=== PATIENT | female | born 1980 | race Caucasian/White ===

== ENCOUNTER 2023-03-26 08:24 | Outpatient (OUT) | payer OTHER, SELFPAY ==
--- NOTE | 2023-03-26 08:39 | XR_ITS ---
[address] [address] Patient Name: HAYLEY TOMPKINS MRN: [id number] date: 1980 Sex: F Assigned Patient Location: US Current Patient Location: US Accession/Order Number: [id number] Exam Date: 03/26/2023 09:05 Report Date: 03/26/2023 09:40 At the request of: NON-STAFF PHYSICIAN Procedure: XR abdomen 1V EXAMINATION: XR abdomen 1V HISTORY: Kidney Stone COMPARISON: No relevant comparison available. FINDINGS: KIDNEY/URETER - RIGHT: No visible renal or ureteral calcifications. KIDNEY/URETER - LEFT: Suspected 5 mm nephrolith PELVIS: No visible ureteral calcifications. Any visible calcifications favor phleboliths. BOWEL: No abnormal dilation or deviation. Moderate stool throughout the colon BONES: No acute abnormality. OTHER: Negative. No abnormal gaseous collections. IMPRESSION: Suspected 5 mm left nephrolith Electronically authenticated by: SELWYN DE LA GARZA Date: 03/26/2023 09:40
--- NOTE | 2023-03-26 08:39 | US_ITS ---
The [address] [address] Patient Name: HAYLEY TOMPKINS MRN: [id number] date: 1980 Sex: F Assigned Patient Location: US Current Patient Location: US Accession/Order Number: [id number] Exam Date: 03/26/2023 08:40 Report Date: 03/26/2023 09:39 At the request of: NON-STAFF PHYSICIAN Procedure: US renal BI EXAMINATION: US renal BI HISTORY: Kidney Stone COMPARISON: No relevant comparison available. TECHNIQUE: Ultrasound examination was performed of the kidneys and urinary bladder. FINDINGS: RIGHT KIDNEY: 3 mm nonobstructing stone within inferior pole. No hydronephrosis, mass, or cortical thinning. Kidney: 12.1 x 5.0 x 5.6 cm LEFT KIDNEY: 4 mm nonobstructing stone within inferior pole. No hydronephrosis, mass, or cortical thinning. Kidney: 10.0 x 4.7 x 5.1 cm BLADDER: No visible wall thickening, mass, or calculi. IMPRESSION: 1. Bilateral nonobstructing nephrolithiasis. Electronically authenticated by: TU ALVES Date: 03/26/2023 09:39
== END 2023-03-26 08:25 ==
PROVIDERS: PCP Family Medicine
DX: N20.0 Calculus of kidney (principal)
CPT/HCPCS: 74018; 76775

== ENCOUNTER 2025-04-21 14:02 | Emergency (ER) | payer OTHER, SELFPAY ==
[2025-04-21 14:08] VITALS: BP 151/85; PULSE 88; TEMP 36.7; O2SAT 98; BMI 34.5
--- NOTE | 2025-04-21 14:14 | CT_ITS ---
[address] [address] Patient Name: HAYLEY TOMPKINS MRN: [id number] date: 1980 Sex: F Assigned Patient Location: ED.MAIN Current Patient Location: ED.MAIN Accession/Order Number: [id number] Exam Date: 04/21/2025 15:29 Report Date: 04/21/2025 15:35 At the request of: HILDA CIFUENTES NP Procedure: CT abdomen pelvis w con CT abdomen pelvis w con 04/21/2025 3:15 PM SIGNS AND SYMPTOMS: ^diarrhea, bloody stool \S.br\ TECHNIQUE: Multidetector ct axial images of the abdomen and pelvis were obtained with IV contrast. Multiplanar reformats were performed and reviewed to further define anatomy and possible pathology. CT was performed with one or more of the following dose reduction techniques: Automated exposure control, adjustment of the mA and/or kV according to patient size, or use of iterative reconstruction technique. COMPARISON: None. FINDINGS: Lower Chest: Within normal limits. ABDOMEN: Liver: Within normal limits. Bile Ducts: Normal caliber. Gallbladder: No calcified gallstones. Normal caliber wall. Pancreas: Within normal limits. Spleen: Within normal limits. Adrenals: Within normal limits. Kidneys: There is a 4 mm nonobstructing stone in the left renal collecting system. A second 2 mm nonobstructing stone is noted in the superior collecting system on the left. Focal areas of renal cortical atrophy are noted on the right suggesting prior pyelonephritis. There is a 2 mm nonobstructing stone in the right renal collecting system. Pelvis: Reproductive Organs: No pelvic masses. Ureters: Within normal limits. Bladder: Within normal limits. Bowel: There is diffuse wall thickening along the colon with mild adjacent fat stranding suggesting colitis which may be infectious or inflammatory. There is a normal appendix in the right lower quadrant. There is no bowel obstruction. Mesenteric Lymph Nodes: No enlarged mesenteric lymph nodes. Peritoneum: No ascites or free air, no fluid collection. Vessels: within normal limits Retroperitoneum: Within normal limits. Abdominal Wall: Within normal limits. Bones: Bilateral L5 pars defects are present with grade 1 spondylolisthesis of L5 upon S1. Degenerative changes are noted in the sacroiliac joints. CT/CT abdomen pelvis w con IMPRESSION: There is diffuse wall thickening along the colon with mild adjacent fat stranding suggesting colitis which may be infectious or inflammatory. No bowel obstruction or obstructive uropathy. Nonobstructing renal stones are present bilaterally as above. Impression dictated by: Donnie Martínez M.D. 04/21/2025 3:35 PM Dictation Location: [place] [address] Electronically authenticated by: [id number] Y Date: 04/21/2025 15:35
[2025-04-21 14:25] VITALS: O2SAT 98
[2025-04-21 14:42] LABS: Hematocrit 37.9 % (36.0-48.0); Hemoglobin 12.6 g/dL (12.0-16.0); Immature Granulocytes Abs Auto 0.01 10^3/uL (0.00-0.03); Immature Granulocytes Pct Auto 0.2 % (0.0-0.5); Lymphocytes Absolute Auto 1.7 10^3/uL (1.2-3.8); Mean Corpuscular HGB Conc 33.2 g/dL (29.9-35.2); Mean Corpuscular Hemoglobin 29.5 pg (26.7-34.0); Mean Corpuscular Volume 88.8 fL (81.0-99.0); Platelet Count 308 10^3/uL (150-450); Red Blood Count 4.27 10^6/uL (4.20-5.40); White Blood Count 6.4 10^3/uL (4.0-11.0)
[2025-04-21 14:43] LABS: Glucose Urine UA NEGATIVE (NEGATIVE)
[2025-04-21 14:53] LABS: Cast Seen? NONE SEEN #/LPF (NONE SEEN); Crystals Seen? None Seen #/HPF (None Seen); Urine Culture Indicated NO
[2025-04-21 14:54] LABS: Alanine Aminotransferase 20 U/L (14-59); Albumin Globulin Ratio 0.8; Albumin Level 3.2 g/dL (3.4-5.0); Alkaline Phosphatase 88 U/L (46-116); Anion Gap 14.4; Aspartate Amino Transferase 17 U/L (15-37); Blood Urea Nitrogen 14.0 mg/dL (7.0-18.0); Calcium 8.8 mg/dL (8.5-10.1); Carbon Dioxide 27.4 mmol/L (21.0-32.0); Chloride 105 mmol/L (98-107); Estimated GFR (African America >60 (>=60 mL/min/1.73m^2); Estimated GFR (Non-African Ame >60 (>=60 mL/min/1.73m^2); Globulin 4.1 g/dL; Glucose 106 mg/dL (74-106); Lipase 22.0 U/L (16.0-77.0); Potassium 3.8 mmol/L (3.5-5.1); Sodium 143 mmol/L (136-145); Total Protein 7.3 g/dL (6.4-8.2)
--- NOTE | 2025-04-21 14:55 | ED_ITS ---
HPI HPI - General Adult General Chief complaint: Nausea/Vomiting/Diarrhea Stated complaint: BLOOD IN STOOL Time Seen by Provider: 04/21/25 14:14 Source: patient Mode of arrival: walk-in History of Present Illness HPI narrative: The patient is a 45-year-old female presents to the emergency department today for evaluation of concerns for diarrhea and bloody stools. She endorses in 04/17 she has had 5 episodes of diarrhea stools daily about. She reports since yesterday she has had some pink-tinged stool present. She does endorse some generalized abdominal discomfort mostly to the periumbilical region . No fevers/chills, nausea/vomiting. No urinary symptoms or back/flank pain. Denies any dizziness or syncope. She mention she does use Aleve 2-3 times a week as needed. Denies any alcohol use. She states she is not on any antiplatelet or anticoagulant medications otherwise. She any significant medical or surgical history. Related Data Allergies Allergy/AdvReac Type Severity Reaction Status Date / Time No Known Drug Allergies Allergy Verified 04/21/25 14:11 Review of Systems ROS Status of ROS 10 or more systems reviewed and unremark able except as noted in history and below Exam Narrative Exam Narrative: Constituational: Awake/ alert, no apparent distress, well hydrated HENMT: normocephalic, external ears normal, moist oral mucous membranes and oropharynx normal Eyes: EOMI and conjunctivae normal Neck: ROM intact Chest: inspection of chest normal Respiratory: Normal respiratory effort, clear to auscultation bilaterally Cardio: regular rate and regular rhythm GI: soft to palpation and non-tender Rectal: normal rectal tone, +soft external hemorrhoid, soft light brown stool present Back: nontender MSK: ROM intact, +NVI Skin: no rashes or petechiae Neuro: no focal deficits Psych: mental status grossly normal Constitutional Vital Signs, click to edit/add: Last Vital Signs Temp 98.1 F 04/21/25 14:08 Pulse 88 04/21/25 14:08 Resp 16 04/21/25 14:08 BP 151/85 H 04/21/25 14:08 Pulse Ox 98 04/21/25 14:08 O2 Del Method Room Air 04/21/25 14:08 Course Vital Signs Vital signs: Vital Signs Temperature 98.1 F 04/21/25 14:08 Pulse Rate 88 04/21/25 14:08 Respiratory Rate 16 04/21/25 14:08 Blood Pressure 151/85 H 04/21/25 14:08 Pulse Oximetry 98 04/21/25 14:08 Oxygen Delivery Method Room Air 04/21/25 14:08 Temperature 98.1 F 04/21/25 14:08 Pulse Rate 88 04/21/25 14:08 Respiratory Rate 16 04/21/25 14:08 Blood Pressure 151/85 H 04/21/25 14:08 Pulse Oximetry 98 04/21/25 14:08 Oxygen Delivery Method Room Air 04/21/25 14:08 Medical Decision Making MDM Narrative Medical decision making narrative: The patient is a nontoxic-appearing 45-year-old female who presented to the emergency department today for evaluation concerns for diarrhea stools and concerns for pink-tinged stool for the past day. Initial examination vital signs overall stable. No acute abdominal findings on exam. Labs stable as below. Stool is positive for occult blood. Imaging of abdomen pelvis is suggestive of colitis. Discussed these findings with the patient including recommendations for supportive care. Will discharge home with referral for GI. Will hold off on any antibiotics and supportive measures at this time as overall patient's pain is controlled and labs are stable. Discussed signs and symptoms of any worsening condition and when to consider reevaluation by the emergency department. Patient verbalized an understanding of this and is agreeable with the plan to be discharged home. Medical Records Medical records reviewed: Yes I reviewed the patient's medical records Lab Data Lab results reviewed: Yes I reviewed the patient's lab results Labs: Lab Results 04/21/25 04/21/25 04/21/25 Range/Units 14:11 14:30 14:32 WBC 6.4 (4.0-11.0) 10^3/uL RBC 4.27 (4.20-5.40) 10^6/uL Hgb 12.6 (12.0-16.0) g/dL Hct 37.9 (36.0-48.0) % MCV 88.8 (81.0-99.0) fL MCH 29.5 (26.7-34.0) pg MCHC 33.2 (29.9-35.2) g/dL RDW 14.0 (11.0-15.0) % Plt Count 308 (150-450) 10^3/uL MPV 9.7 (9.5-13.5) fL Neut % (Auto) 57.6 (43.0-75.0) % Lymph % (Auto) 26.5 (20.5-60.0) % Mayes % (Auto) 13.4 H (1.7-12.0) % Eos % (Auto) 2.0 (0.9-7.0) % Baso % (Auto) 0.3 (0.2-2.0) % Neut # (Auto) 3.7 (1.4-6.5) 10^3/uL Lymph # (Auto) 1.7 (1.2-3.8) 10^3/uL Mayes # (Auto) 0.9 H (0.3-0.8) 10^3/uL Eos # (Auto) 0.1 (0.0-0.7) 10^3/uL Baso # (Auto) 0.0 (0.0-0.1) 10^3/uL Abs Immat Gran (auto) 0.01 (0.00-0.03) 10^3/uL Imm/Tot Granulo (auto) 0.2 (0.0-0.5) % Sodium 143 (136-145) mmol/L Potassium 3.8 (3.5-5.1) mmol/L Chloride 105 (98-107) mmol/L Carbon Dioxide 27.4 (21.0-32.0) mmol/L Anion Gap 14.4 BUN 14.0 (7.0-18.0) mg/dL Creatinine 0.64 (0.55-1.02) mg/dL Est GFR ( Amer) >60 (>=60 mL/min/1.73m^2) Est GFR (Non-Af Amer) >60 (>=60 mL/min/1.73m^2) BUN/Creatinine Ratio 21.9 Glucose 106 (74-106) mg/dL Calcium 8.8 (8.5-10.1) mg/dL Total Bilirubin 0.3 (0.2-1.0) mg/dL AST 17 (15-37) U/L ALT 20 (14-59) U/L Alkaline Phosphatase 88 (46-116) U/L Total Protein 7.3 (6.4-8.2) g/dL Albumin 3.2 L (3.4-5.0) g/dL Globulin 4.1 g/dL Albumin/Globulin Ratio 0.8 Lipase 22.0 (16.0-77.0) U/L Urine Color Lt. yellow (YELLOW) Urine Clarity Clear (CLEAR) Urine pH 6.0 (5.0-9.0) Ur Specific [place] <=1.005 A (1.005-1.025) Urine Protein Negative (NEG/TRACE) mg/dL Urine Glucose (UA) Negative (NEGATIVE) mg/dL Urine Ketones Negative (NEGATIVE) mg/dL Urine Occult Blood Moderate A (NEGATIVE) Urine Nitrite Negative (NEGATIVE) Urine Bilirubin Negative (NEGATIVE) Urine Urobilinogen 0.2 (0.2-1.0) EU/dL Ur Leukocyte Esterase Negative (NEGATIVE) Urine RBC 5-10 A (0-2) #/HPF Urine WBC 0-2 A (NONE SEEN) #/HPF Ur Squamous Epith Cells Few A (NONE/RARE) #/LPF Urine Crystals None seen (None Seen) #/HPF Urine Bacteria Trace A (NONE SEEN) #/HPF Urine Casts None seen (NONE SEEN) #/LPF Urine Mucus Trace A (NONE SEEN) Ur Culture Indicated? No Stool Occult Blood Positive A Imaging Data CT scan - abdomen: Radiologist's impression: ITS Impressions Abdomen/Pelvis CT 04/21/25 14:14 IMPRESSION: There is diffuse wall thickening along the colon with mild adjacent fat stranding suggesting colitis which may be infectious or inflammatory. No bowel obstruction or obstructive uropathy. Nonobstructing renal stones are present bilaterally as above. Impression dictated by: Donnie Martínez M.D. 04/21/2025 3:35 PM Dictation Location: [place] [address] Electronically authenticated by: [id number] Y Date: 04/21/2025 15:35 Discharge Plan Discharge Chief Complaint: Nausea/Vomiting/Diarrhea Clinical Impression: Colitis Patient Disposition: Home, Self-Care Print Language: Armenian Instructions: Colitis (ED) Additional Instructions: Recommend following a bland diet such as bananas, rice, toast, applesauce, broth, Jell-O -> advance this as tolerated. May take Tylenol as needed for any pain. Please up with gastroenterology for reevaluation as discussed. Referrals: NATALIE ALCANTARA [Physician, Gastroenterology] - 1 week Taryn Richard MD [Primary Care Provider, Family Practice] - 1 week
--- NOTE | 2025-04-21 16:15 | PC.NURSE ---
reports having 5 diarrhea stools today
[2025-04-21 16:16] VITALS: BP 98/63; PULSE 80; O2SAT 98
== END 2025-04-21 16:17 | disposition home or self-care (01) ==
PROVIDERS: Nurse Practitioner; Emergency Provider Emergency Medicine; PCP Family Medicine
DX: K52.9 Noninfective gastroenteritis and colitis, unspecified (principal); K92.1 Melena; R10.84 Generalized abdominal pain
CPT/HCPCS: 36415; 74177; 80053; 81001; 83690; 85025; 99284; G0328; Q9967

== ENCOUNTER 2025-08-27 08:25 | Emergency (ER) | payer OTHER, SELFPAY ==
[2025-08-27 08:36] VITALS: BP 117/81; PULSE 83; TEMP 36.6; O2SAT 98; BMI 34.5
[2025-08-27] MEDS: KETOROLAC TROMETHAMINE 60 MG/2 ML VIAL IM (09:16)
[2025-08-27 09:23] LABS: Hematocrit 36.7 % (36.0-48.0); Hemoglobin 12.0 g/dL (12.0-16.0); Immature Granulocytes Abs Auto 0.04 10^3/uL (0.00-0.03); Immature Granulocytes Pct Auto 0.3 % (0.0-0.5); Lymphocytes Absolute Auto 3.5 10^3/uL (1.2-3.8); Mean Corpuscular HGB Conc 32.7 g/dL (29.9-35.2); Mean Corpuscular Hemoglobin 28.9 pg (26.7-34.0); Mean Corpuscular Volume 88.4 fL (81.0-99.0); Platelet Count 312 10^3/uL (150-450); Red Blood Count 4.15 10^6/uL (4.20-5.40); White Blood Count 11.5 10^3/uL (4.0-11.0)
--- NOTE | 2025-08-27 09:24 | CT_ITS ---
The [address] [address] Patient Name: HAYLEY TOMPKINS MRN: [id number] date: 1980 Sex: F Assigned Patient Location: ER Current Patient Location: ER Accession/Order Number: [id number] Exam Date: 08/27/2025 09:20 Report Date: 08/27/2025 09:55 At the request of: CYNTHIA DUMONT MD Procedure: CT abdomen pelvis wo con CT ABDOMEN AND PELVIS WITHOUT CONTRAST CLINICAL DATA: Left flank pain and burning with urination. COMPARISON: 04/21/2025 Spiral images were obtained through the abdomen and pelvis without contrast. This CT exam was performed using one or more following dose reduction techniques: Automated exposure control, adjustment of the mA and/or kV according to patient size, or use of iterative reconstruction technique. Limited cuts through the lung bases show minimal dependent atelectasis. Evaluation of the intra-abdominal organs is slightly limited by the absence of contrast. No calcified gallstones are identified. No intrahepatic masses are seen. The spleen, pancreas and adrenal glands show no acute findings. Tiny bilateral renal stones are visualized measuring up to 3 mm in size. There may be some cortical scarring at the upper pole on the right. On the left, there is mild to moderate hydronephrosis and hydroureter. This is secondary to a stone within a couple centimeters of the ureterovesical junction measuring 6 - 7 mm in size. The abdominal aorta is normal caliber. No enlarged nodes are seen. There is no ascites. There is a small umbilical hernia containing fat. No dilated small bowel is present. There is air and stool within the colon, greater on the right. Dextroscoliotic curvature and degenerative changes are visualized at the spine. There is lumbosacral spondylolisthesis due to bilateral L5 spondylolysis. Images through the pelvis show no appendiceal inflammation. There is no dilated small bowel. The distal colon is mostly decompressed. No diverticular disease is seen. The uterus is retroverted. No adnexal cysts are visualized. The urinary bladder is not well distended for evaluation. There is no ascites. CT/CT abdomen pelvis wo con IMPRESSION: BILATERAL NEPHROLITHIASIS. PARTIALLY OBSTRUCTING DISTAL LEFT URETERAL STONE. Impression dictated by: Kristie Stanford M.D. 08/27/2025 9:55 AM Dictation Location: [place] [address] Electronically authenticated by: [id number] Y Date: 08/27/2025 09:55
--- NOTE | 2025-08-27 09:38 | ED_ITS ---
HPI HPI - General Adult General Chief complaint: Urogenital-Female Stated complaint: FLANK PAIN Time Seen by Provider: 08/27/25 08:44 Source: patient Mode of arrival: walk-in History of Present Illness HPI narrative: The patient is a 45-year-old female presented to the ER with a left sided flank pain that started this morning, and mentioned that she has a history of kidney stone and had similar pain when she had that episode few years ago Patient denies any fever or chills any burning with urination no nausea no vomiting She did not take anything [id number] for the pain and her last menstruation was a week ago Related Data Previous Rx's ?Medication ?Instructions ?Recorded cephalexin 500 mg capsule 500 mg PO Q12H 5 days #10 ca ps 08/27/25 diclofenac sodium 75 mg 75 mg PO BID PRN pain #20 ta bs 08/27/25 tablet,delayed release tamsulosin 0.4 mg capsule (Flomax) 0.4 mg PO DAILY #10 caps 08/27/25 Allergies Allergy/AdvReac Type Severity Reaction Status Date / Time No Known Drug Allergies Allergy Verified 08/27/25 08:36 Opioid HPI Opioid Management Most Recent Opioid Data: Last Pain Scale 10 Today, 09:16 Last MAR Pain Assessment Today, 09:16 Review of Systems ROS Status of ROS 10 or more systems reviewed and unremark able except as noted in history and below PFSH PFSH Social History Little interest or pleasure in doing things: not at all Feeling down, depressed, or hopeless: not at all Exam Narrative Exam Narrative: Nurses notes and vital signs reviewed and patient is not hypoxic. General: Well-appearing and in no apparent distress. Skin: Warm, dry, no pallor noted. No rash. Head: Normocephalic, atraumatic. Neck: Supple, non-tender. Cardiovascular: Regular Rate and Rhythm without murmur, gallop or rub. Respiratory: No accessory muscle use or respiratory distress. Lungs are clear to auscultation, no wheezing, rales or rhonchi Chest Wall: no tenderness Back: No midline thoracic or lumbar vertebral tenderness. Left-sided CVA tenderness GI: Abdomen is soft, non-distended. Normal bowel sounds. No masses appreciated. Left upper quadrant tenderness Neurological: A&O x4. No cranial nerve dysfunction observed. No truncal a taxia. Moves all extremities. Sensation intact. Psychiatric: Cooperative and interactive. Normal mood and affect. Constitutional Vital Signs, click to edit/add: Last Vital Signs Temp 97.8 F 08/27/25 08:36 Pulse 83 08/27/25 08:36 Resp 18 08/27/25 08:36 BP 117/81 08/27/25 08:36 Pulse Ox 98 08/27/25 08:36 O2 Del Method Room Air 08/27/25 08:36 Course Vital Signs Vital signs: Vital Signs Temperature 97.8 F 08/27/25 08:36 Pulse Rate 83 08/27/25 08:36 Respiratory Rate 18 08/27/25 08:36 Blood Pressure 117/81 08/27/25 08:36 Pulse Oximetry 98 08/27/25 08:36 Oxygen Delivery Method Room Air 08/27/25 08:36 Temperature 97.8 F 08/27/25 08:36 Pulse Rate 83 08/27/25 08:36 Respiratory Rate 18 08/27/25 08:36 Blood Pressure 117/81 08/27/25 08:36 Pulse Oximetry 98 08/27/25 08:36 Oxygen Delivery Method Room Air 08/27/25 08:36 Medical Decision Making MDM Narrative Medical decision making narrative: The patient CBC and chemistry showed no acute significant pathology Urinalysis shows some bacteria but there is no signs of UTI test is negative A CAT scan of the abdomen pelvis without contrast showed that the patient have a mild hydronephrosis with a partially obstructing left sided kidney stone 7 to 8 mm Right now the patient had normal kidney function she was feeling better after initially being treated with Toradol discharged home with Flomax Voltaren as w ell as Keflex as prophylaxis The patient referred to urology as outpatient instructed about the proper monitoring of the symptoms at home in case of any pain or fever the patient to come back to the ER and also in case of any continuous pain after 2 days the patient definitely have to come back to the ER or follow-up with urology The patient to follow-up with the primary care within 2 to 3 days and to come back to the ER in case of any worsening of the current symptoms or any new symptoms or concerns Lab Data Labs: Lab Results 08/27/25 08/27/25 08/27/25 Range/Units 09:00 09:50 10:10 WBC 11.5 H (4.0-11.0) 10^3/uL RBC 4.15 L (4.20-5.40) 10^6/uL Hgb 12.0 (12.0-16.0) g/dL Hct 36.7 (36.0-48.0) % MCV 88.4 (81.0-99.0) fL MCH 28.9 (26.7-34.0) pg MCHC 32.7 (29.9-35.2) g/dL RDW 13.6 (11.0-15.0) % Plt Count 312 (150-450) 10^3/uL MPV 11.2 (9.5-13.5) fL Neut % (Auto) 62.3 (43.0-75.0) % Lymph % (Auto) 29.9 (20.5-60.0) % [place] % (Auto) 5.6 (1.7-12.0) % Eos % (Auto) 1.3 (0.9-7.0) % Baso % (Auto) 0.6 (0.2-2.0) % Neut # (Auto) 7.2 H (1.4-6.5) 10^3/uL Lymph # (Auto) 3.5 (1.2-3.8) 10^3/uL [place] # (Auto) 0.7 (0.3-0.8) 10^3/uL Eos # (Auto) 0.2 (0.0-0.7) 10^3/uL Baso # (Auto) 0.1 (0.0-0.1) 10^3/uL Abs Immat Gran (auto) 0.04 H (0.00-0.03) 10^3/uL Imm/Tot Granulo (auto) 0.3 (0.0-0.5) % Sodium 140 (136-145) mmol/L Potassium 4.1 (3.5-5.1) mmol/L Chloride 103 (98-107) mmol/L Carbon Dioxide 24.9 (21.0-32.0) mmol/L Anion Gap 16.2 BUN 21.0 H (7.0-18.0) mg/dL Creatinine 0.72 (0.55-1.02) mg/dL Est GFR ( Amer) >60 (>=60 mL/min/1.73m^2) Est GFR (Non-Af Amer) >60 (>=60 mL/min/1.73m^2) BUN/Creatinine Ratio 29.2 Glucose 106 (74-106) mg/dL Calcium 9.4 (8.5-10.1) mg/dL Total Bilirubin 0.3 (0.2-1.0) mg/dL AST 25 (15-37) U/L ALT 23 (14-59) U/L Alkaline Phosphatase 102 (46-116) U/L Total Protein 7.9 (6.4-8.2) g/dL Albumin 3.6 (3.4-5.0) g/dL Globulin 4.3 g/dL Albumin/Globulin Ratio 0.8 Serum HCG, Qual Negative (NEGATIVE) Urine Color Dk. yellow (YELLOW) Urine Clarity Clear (CLEAR) Urine pH 5.5 (5.0-9.0) Ur Specific [place] >=1.030 A (1.005-1.025) Urine Protein 100 A (NEG/TRACE) mg/dL Urine Glucose (UA) Negative (NEGATIVE) mg/dL Urine Ketones Trace A (NEGATIVE) mg/dL Urine Occult Blood Large A (NEGATIVE) Urine Nitrite Negative (NEGATIVE) Urine Bilirubin Negative (NEGATIVE) Urine Urobilinogen 0.2 (0.2-1.0) EU/dL Ur Leukocyte Esterase Negative (NEGATIVE) Urine RBC 75-100 A (0-2) #/HPF Urine WBC 2-5 A (NONE SEEN) #/HPF Ur Squamous Epith Cells Rare (NONE/RARE) #/LPF Urine Crystals None seen (None Seen) #/HPF Urine Bacteria Small A (NONE SEEN) #/HPF Urine Casts None seen (NONE SEEN) #/LPF Urine Mucus None seen (NONE SEEN) Ur [place] [place] Discharge Chief Complaint: Urogenital-Female Clinical Impression: Kidney stone, Hydronephrosis Patient Disposition: Home, Self-Care Time of Disposition Decision: 10:43 Condition: Good Prescriptions / Home Meds: New cephalexin 500 mg capsule 500 mg PO Q12H 5 Days Qty: 10 0RF tamsulosin [Flomax] 0.4 mg capsule 0.4 mg PO DAILY Qty: 10 0RF diclofenac sodium 75 mg tablet,delayed release (DR/EC) 75 mg PO BID PRN (Reason: pain) Qty: 20 0RF Print Language: Uzbek Instructions: How to Strain Your Urine (ED), Hydronephrosis (ED) Referrals: Kathrin Hatfield MD [Physician, Urology] - 1 week Taryn Richard MD [Primary Care Provider, Family Practice] - 1 week Discharge Date/Time: 08/27/25 10:53
[2025-08-27 10:20] LABS: Alanine Aminotransferase 23 U/L (14-59); Albumin Globulin Ratio 0.8; Albumin Level 3.6 g/dL (3.4-5.0); Alkaline Phosphatase 102 U/L (46-116); Anion Gap 16.2; Aspartate Amino Transferase 25 U/L (15-37); Blood Urea Nitrogen 21.0 mg/dL (7.0-18.0); Calcium 9.4 mg/dL (8.5-10.1); Carbon Dioxide 24.9 mmol/L (21.0-32.0); Chloride 103 mmol/L (98-107); Estimated GFR (African America >60 (>=60 mL/min/1.73m^2); Estimated GFR (Non-African Ame >60 (>=60 mL/min/1.73m^2); Globulin 4.3 g/dL; Glucose 106 mg/dL (74-106); Potassium 4.1 mmol/L (3.5-5.1); Sodium 140 mmol/L (136-145); Total Protein 7.9 g/dL (6.4-8.2)
[2025-08-27 10:24] LABS: Glucose Urine UA NEGATIVE (NEGATIVE)
[2025-08-27 10:33] LABS: Cast Seen? NONE SEEN #/LPF (NONE SEEN); Crystals Seen? None Seen #/HPF (None Seen); Urine Culture Indicated YES-FRMC
== END 2025-08-27 10:53 | disposition home or self-care (01) ==
PROVIDERS: Emergency Provider Emergency Medicine; PCP Family Medicine
DX: N13.2 Hydronephrosis with renal and ureteral calculous obstruction (principal); Z87.442 Personal history of urinary calculi
CPT/HCPCS: 36415; 74176; 80053; 81001; 84703; 85025; 87086; 96372; 99284; J1885